=== PATIENT | female | born 1930 | race Caucasian/White ===

== ENCOUNTER 2018-01-20 23:59 | Inpatient (IN) | payer MEDICARE ==
[~2018-01-20] VITALS: Ht 162.5 cm
--- NOTE | ~2018-01-20 | WRIGHTHP ---
[place], [place] PATIENT HISTORY AND PHYSICAL EXAM NAME: KASHMIR NEWBY UNIT #: [id number] ROOM: 315 DOCTOR: MARIANA SOLIZ MD BIRTHDATE: [birth year] DOS: 01/22/2018 CHIEF COMPLAINT: "What am I doing here?" HISTORY OF PRESENT ILLNESS: This is an 87-year-old white female who is a resident of the [facility] who presented to the emergency room at [facility] with frequent falls, increased confusion and delusions. The patient apparently is normally confused, but has been getting increasingly worse. She has very poor safety awareness, does not follow directions. She was repeatedly getting up and almost falling. The patient has also been talking to her daughter. She has been very labile and inappropriate. She has been trying to climb out of the bed and has almost gotten hurt multiple times. When redirected, she has struck out at staff. She is admitted now to rule out any organic factors to attempt to stabilize on medication, to engage in individual and camilo milieu activity. PAST MEDICAL HISTORY: Remarkable for chronic kidney disease stage 3, hypertension, AFib, hyperlipidemia, diabetes, osteoarthritis. SOCIAL HISTORY: The patient denies drug or alcohol use now or in the past. ALLERGIES: She has no known allergies. STRENGTHS: The patient has a very supportive living situation and supportive family. MENTAL STATUS: The patient is alert and oriented to self only. This morning, she is quite confused and disjointed in her thinking. She is fragmented. She has a hard time following the conversation and oftentimes responds inappropriately to the questions asked of her. She processes information slowly and short term memory is exceedingly poor. DIAGNOSIS: Intermittent explosive disorder and major depression, recurrent, severe. PLAN: The patient has been maintained on Exelon patch 13.3. I will augment this with Namenda 5 mg a day. I did also start her on Risperdal 0.25 in the morning and 0.5 at night. I discontinued her citalopram. I would like to monitor further for depression as to what antidepressant I will start. I will engage her in individual and camilo milieu activity, returning to the least restrictive environment when stable. [place], [place] PATIENT HISTORY AND PHYSICAL EXAM NAME: KASHMIR NEWBY UNIT #: [id number] ROOM: [facility] DOCTOR: MARIANA SOLIZ MD BIRTHDATE: [birth year] MARIANA SOLIZ MD CM:HISPHYS:PATIENT HISTORY AND PHYSICAL EXAMINATION [id number] MARIANA SOLIZ MD 01/22/18 1144 interface
--- NOTE | ~2018-01-20 | PR ---
[place], [place] PROGRESS NOTE NAME: KASHMIR NEWBY UNIT #: [id number] ROOM: 315 DOCTOR: MARIANA SOLIZ MD BIRTHDATE: [birth year] DOS: 01/25/2018 CHIEF COMPLAINT: "Morning." SUMMARY OF THE VISIT: The patient was interviewed while she was engaging in group activities. She was fairly pleasant upon approach. She voiced no complaint, stated she slept well and had a good breakfast, but could not remember what she had eaten for breakfast. MENTAL STATUS: She is alert and oriented to person, not necessarily place, certainly not time. Mood does seem to be trending towards euthymia. Affect is more appropriate. There is no bandar, hypomania or gross psychosis. Short term memory continues to be problematic. PLAN: I will maintain her Exelon at its current dose, increasing the Namenda now to its maximum dose of 10 mg b.i.d., utilizing it to augment the effectiveness of the Exelon. We will engage in individual and camilo milieu activity with the plan to return to the least restrictive environment when psychiatrically stable. MARIANA SOLIZ MD CM:PNTRANS [id number] MARIANA SOLIZ MD 01/25/18 1129 interface
--- NOTE | ~2018-01-20 | PR ---
[place], [place] PROGRESS NOTE NAME: KASHMIR NEWBY UNIT #: [id number] ROOM: 315 DOCTOR: MARIANA SOLIZ MD BIRTHDATE: [birth year] DOS: 01/24/2018 CHIEF COMPLAINT: "Morning." SUMMARY OF THE VISIT: The patient was interviewed as she was sleeping in a chair. She was very difficult to awaken and engage and her responses this morning tended to be very short and simple. Nurses report she continues to exhibit mood lability and will have periods of excessive agitation and yelling out. MENTAL STATUS: She is alert and oriented to person, unclear place, certainly not time. Mood still seems to be labile. Affect at times is inappropriate. There is no gross bandar or hypomania and there does not appear to be the presence of any auditory or visual hallucinations. Short term memory continues to be extremely poor. PLAN: I will increase her Namenda to 10 mg in the morning and 5 mg at night, augmenting the effectiveness of the Exelon patch, continue to attempt to engage in individual and camilo milieu activity, returning then to the least restrictive environment when psychiatrically stable. MARIANA SOLIZ MD CM:PNTRANS [id number] MARIANA SOLIZ MD 01/24/18 1135 interface
--- NOTE | ~2018-01-20 | PR ---
[place], [place] PROGRESS NOTE NAME: KASHMIR NEWBY UNIT #: [id number] ROOM: 315 DOCTOR: MARIANA SOLIZ MD BIRTHDATE: [birth year] DOS: 01/26/2018 CHIEF COMPLAINT: "Is it breakfast?" SUMMARY OF THE VISIT: The patient was interviewed as she was sitting in the quiet room. Nurses report she had a very bad evening, but this morning seems to be a little calmer. I interviewed her once. She was fairly bright and superficial with me. A little bit later, she was interacting with physical therapy and was ambulating quite well. She was much more pleasant and cooperative with them and was not striking out, yelling out or exhibiting mood lability. MENTAL STATUS: She remains alert and oriented to person, possibly place, not to time. Mood does seem to be slightly more euthymic. Affect more appropriate. There was no hypomania or bandar. There are no gross psychotic symptoms noted now. This seems to be something, however, that occurs worse in the late evening hours. Memory for short term events remains problematic. PLAN: I will increase her Risperdal dose from 0.25 in the morning and 0.5 at night to 0.5 mg in the morning and 1 mg at bedtime to see if we can stop the sundowning and the resultant impulsivity and agitation and aggression. We will continue to engage in individual and camilo milieu activity, returning to the least restrictive environment when psychiatrically stable. MARIANA SOLIZ MD CM:PNTRANS [id number] MARIANA SOLIZ MD 01/26/18 1010 interface
--- NOTE | ~2018-01-20 | DS ---
[place], [place] DISCHARGE SUMMARY NAME: [id number] UNIT #: [id number] ROOM: 315 DOCTOR: MARIANA SOLIZ MD BIRTHDATE: [birth year] DOS: 01/28/2018 CHIEF COMPLAINT: "What am I doing here?" HISTORY OF PRESENT ILLNESS: This is an 87-year-old white female who is a resident of the [facility] who presents to the Emergency Room at [facility] with the chief complaint of frequent falls, increased confusion and marked delusions. The patient apparently has a baseline of being normally confused, but this has gotten progressively worse over the last several weeks prior to this admission. The patient has extremely poor safety awareness and does not follow directions. She has repeatedly attempted to get up without assistance and has fallen multiple times while at the assisted living facility. Attempts to redirect her have only met with her becoming increasingly more hostile, labile and verbally and physically aggressive. Because of the substantial risk of harm to self and others, the patient was admitted to the [facility] to rule out any organic factors, to attempt to stabilize on medication, to engage in individual and camilo milieu activity and to determine the least restrictive environment to which she can return safely. PAST MEDICAL HISTORY: Remarkable for chronic kidney disease stage III, hypertension, atrial fibrillation, hyperlipidemia, diabetes and osteoarthritis. The patient does not have a history of drug or illicit substance abuse and no history of alcohol abuse and has not been a cigarette smoker. STRENGTHS: The patient has a very good support system and is conversant. SUMMARY OF HOSPITAL COURSE: The patient was admitted to the unit where she was maintained on Exelon patch 13.3 mg a day. This was augmented with Namenda 5 mg a day, which was very rapidly titrated upwards to its maximum dose of 10 mg a day. Her citalopram was discontinued as was Depakote due to ineffectiveness. She was started on Risperdal 0.25 mg in the morning and 0.5 mg at night to combat the gross psychotic symptoms and to stabilize her mood. She tolerated the Risperdal well and the dose was gradually increased to 0.5 in the morning and 1 mg at night without apparent side effects. She did not exhibit sedation, somnolence or extrapyramidal symptoms and in fact significantly improved to the point where she was conversant in group, able to engage individually and was able to attend to her ADLs more effectively. It was felt that she could safely return back to assisted living because her overall cognition and behavior had improved sufficiently to do so. She was tolerating the medication regimen well and was discharged then back to the [facility] on 01/28/[facility]. MENTAL STATUS AT DISCHARGE: The patient is alert and oriented to self, more than likely place, not to time. Mood was euthymic. Affect appropriate. There were no symptoms of depression, hypomania, bandar or psychosis. Short term memory continued to be poor and she did process slowly, otherwise she was intact. FINAL DIAGNOSES: Major depression, recurrent and intermittent explosive [place], [place] DISCHARGE SUMMARY NAME: KASHMIR NEWBY UNIT #: [id number] ROOM: [facility] DOCTOR: MARIANA SOLIZ MD BIRTHDATE: [birth year] disorder with Alzheimer's dementia as well. DISPOSITION: The patient is returning to [facility] assisted living facility. Medically and psychiatrically, she is stable. Her biopsychosocial needs are adequately being met by the facility as well as family. She will have followup by myself upon her readmission to the [facility]. MARIANA SOLIZ MD CM:TREVER [id number] MARIANA SOLIZ MD 01/28/18 0927 interface
--- NOTE | ~2018-01-20 | PR ---
[place], [place] PROGRESS NOTE NAME: KASHMIR NEWBY UNIT #: [id number] ROOM: 315 DOCTOR: MARIANA SOLIZ MD BIRTHDATE: [birth year] DOS: 01/23/2018 CHIEF COMPLAINT: "Hello." SUMMARY OF THE VISIT: The patient was interviewed as she sat in the chair in the dining area. She engaged in brief very superficial conversation. At times, her responses were nonsensical and did not correspond to the question being asked of her. She was pleasant, however, and was not aggressive or abusive in any way. She seems to be tolerating the current medication regimen well and I see no sedation or somnolence. MENTAL STATUS: She is alert and oriented to self. Unclear if she realizes she is in the hospital and she is certainly not oriented to time. Mood does seem to be more euthymic. Affect is more appropriate. She does process conversation extremely slow and her responses tend to be sparse for the most part. Short term memory continues to be problematic. PLAN: I will go ahead and increase her Namenda to 5 mg b.i.d. while maintaining her current dose of Exelon, continue her present psychotropics, continue to engage in individual and camilo milieu activity, returning to the least restrictive environment when stable. MARIANA SOLIZ MD CM:PNTRANS [id number] MARIANA SOLIZ MD 01/23/18 1245 interface
--- NOTE | ~2018-01-20 | CON ---
[place], [place] REPORT OF CONSULTATION [facility]: [id number] UNIT #: [id number] ROOM: 315 DOCTOR: LETY HERRERA ED.D (HERVE) BIRTHDATE: [birth year] DOS: 01/26/2018 HISTORY OF PRESENT ILLNESS: The patient is an 87-year-old female referred by Dr. Villafana for competency evaluation. At the present time, this patient is on the [facility] Unit at [facility]. She is and had 5 children, however, 1 is . I spoke at length with her daughter, Ora and her son, Andrew. She has been recently living at the [place]. 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 She cannot recall her family physician's name. Her medical history is pertinent for chronic kidney disease, hypertension, atrial fibrillation, diabetes mellitus, osteoarthritis, dementia and intermittent explosive disorder. Her medications include Voltaren, Cardizem, omeprazole, Risperdal, Exelon, Namenda, metformin, metoprolol and lisinopril. She denies drinking any alcoholic beverages or smoking cigarettes. She was awake, alert and oriented to person. She was not aware she was in [facility] and believed she was in [place], [place]. She states she does not know where she lives. She does not know the year and could not name the president. She is clearly having difficulty with her memory, both short and senior care. Her insight is very poor and her judgment is very poor. In my opinion, this patient is clearly not competent to make informed healthcare decisions. She does not have a healthcare power of erisa attorney and I did complete an expert evaluation form for guardianship. Most likely her daughter will be appointed her guardian. DIAGNOSES: Major neurocognitive disorder -- Alzheimer's disease with behavioral disturbance. RECOMMENDATIONS: In my opinion, this patient needs a guardian. Thank you very much for this consult. LETY HERRERA ED.D CM:CONSTR:REPORT OF CONSULTATION 1647 01/26/18 1849 interface MARIANA VILLAFANA MD
--- NOTE | ~2018-01-20 | PR ---
[place], [place] PROGRESS NOTE NAME: KASHMIR NEWBY UNIT #: [id number] ROOM: 315 DOCTOR: MARGIE BECKER DO BIRTHDATE: [birth year] DOS: 01/27/2018 CHIEF COMPLAINT: "My right knee hurts that is what brought me into the hospital." SUMMARY OF VISIT: The patient is an 87-year-old female with past medical history of Alzheimer's dementia and generalized anxiety disorder who was admitted to the [facility] for recent falls, increased confusion and delusions at [facility], currently on hospital day #6 with improved mood. The patient was interviewed in the dining room and was sitting in a Katey chair, among other female patients. This morning patient was complaining of diffuse right knee pain and was anxious about falling. She reports wearing a brace at home at one point prior to misplacing it. The patient was evaluated by Dr. Buchanan yesterday on 01/26/2018 who deemed the patient not competent to make informed healthcare decisions and that the patient required a guardian. Today, the patient states that her son, Andrew , lives in [place] and her daughter, Ora [place], lives in [place], [place]. Bedside glucose last night was 260 and was 104 this morning. The patient reports improvement in her sleep last night and improved appetite at breakfast. MENTAL STATUS EXAMINATION: The patient is alert and oriented to self and place. She was unable to verbalize which day of the week it was. Her mood is appropriate. She appeared anxious when talking about her right knee pain. She appears to have gaps in her short term memory. No signs of bandar or hypomania at this time. PLAN: 1. Intermittent explosive disorder. Due to owning noted yesterday, Risperdal was increased from 0.25 mg in the morning and 0.5 mg at night to 0.5 mg in the morning and 1 mg at bedtime. Continue current psychotropic regimen as the patient is tolerating current therapy well. 2. Emergency guardianship. The patient was evaluated on 01/26/[address] Buchanan who deemed the patient not competent. Paperwork was faxed to Valerie Eastman at . 3. Right knee pain. We will continue Voltaren 1% topical ointment twice daily. The patient currently in physical therapy, we will inquire if the patient can be fitted for a knee brace. 4. Disposition; the patient to be discharged Friday or 01/28/2018 from 01/29/2018 to [facility] pending on medical and psychiatric status. We will continue to engage the patient in individual and milieu activity, returning to the least restrictive environment when psychiatrically stable. Margie Becker DO [place], [place] PROGRESS NOTE NAME: KASHMIR NEWBY UNIT #: [id number] ROOM: [facility] DOCTOR: MARGIE BECKER DO BIRTHDATE: [birth year] MARIANA SOLIZ MD CM:PNTRANS [id number] MARGIE BECKER DO 01/27/182055 interface
[2018-01-21] VITALS (14 sets, daily range): BP systolic 102–142; BP diastolic 41–85
[2018-01-21 00:32] LABS: BILIRUBIN 1+ (NEGATIVE); BLOOD 1+ (NEGATIVE); CLARITY TURBID (CLEAR); COLOR YELLOW (YELLOW); GLUCOSE NEGATIVE (NEGATIVE); KETONE TRACE (NEGATIVE); LEUKO ESTERASE 2+ (NEGATIVE); NITRITE NEGATIVE (NEGATIVE); SPECIFIC GRAVITY 1.025 (1.005-1.030)
[2018-01-21 00:34] LABS: BASO % 0.3 % (0.0-1.0); EOS # 0.3 10*3/uL (0.0-0.4); EOS % 3.7 % (1.0-4.0); HEMATOCRIT 33.1 % (37.0-47.0); HEMOGLOBIN 10.4 g/dl (12.0-16.0); LYMPH # 1.9 10*3/uL (1.3-4.4); LYMPH % 21.9 % (27.0-41.0); MEAN CELL VOLUME 89.9 fl (81.0-99.0); MEAN CORPUSCULAR HGB 28.3 pg (27.0-31.0); MEAN CORPUSCULAR HGB CONC 31.4 g/dl (33.0-37.0); MEAN PLATELET VOLUME 8.8 fl (9.6-12.3); MONO # 0.9 10*3/uL (0.1-1.0); MONO % 10.4 % (3.0-9.0); NEUT # 5.4 10*3/uL (2.3-7.9); PLATELET COUNT AUTOMATED 358 10*3/uL (130-400); RED BLOOD COUNT 3.68 10*6/uL (4.10-5.10); RED CELL DISTRI WIDTH 12.9 % (0-14.5); WHITE BLOOD COUNT 8.6 10*3/uL (4.8-10.8)
[2018-01-21 00:38] LABS: BACTERIA 3+
[2018-01-21] MEDS ORDERED: ASPIR LOW81 MG PO (00:38)
[2018-01-21 00:39] LABS: RBC 16-20 rbc/hpf (0-2); WBC 21-30 wbc/hpf (0-5)
[2018-01-21] MEDS ORDERED: CARDIZEM CD120 M2 PO (00:39)
[2018-01-21] MEDS ORDERED: CELEXA20 MG PO (00:39)
[2018-01-21 00:41] LABS: URINE AMPHETAMINES < 1000 (1000ng/ml); URINE BARBITURATES < 200 (200ng/ml); URINE BENZODIAZEPINES < 200 (200ng/ml); URINE CANNABINOIDS (THC) < 50 (50ng/ml); URINE COCAINE < 300 (300ng/ml); URINE METHADONE < 300 (300ng/ml); URINE OPIATES < 300 (300ng/ml)
[2018-01-21] MEDS ORDERED: B121000 MCG/1 IM (00:41)
[2018-01-21] MEDS ORDERED: DEPAKOTE125 MG PO (00:42)
[2018-01-21] MEDS ORDERED: EXEL13.31 T (00:44)
[2018-01-21 00:46] LABS: URINE PHENCYCLIDINE < 25 (25ng/ml)
[2018-01-21] MEDS ORDERED: GLUCAGON EMERGEN1 M1 IJ (00:46)
[2018-01-21] MEDS ORDERED: IMODIUM A-D2 M2 PO (00:47)
[2018-01-21 00:48] LABS: ACETAMINOPHEN (TYLENOL) 5.7 ug/ml (10-30); ALBUMIN 2.6 gm/dl (3.1-4.5); ALKALINE PHOSPHATASE 87 U/L (45-117); BUN 39 mg/dl (7-24); CHLORIDE 108 mmol/L (98-107); CREATININE 1.62 mg/dL (0.55-1.02); POTASSIUM 5.1 mmol/L (3.5-5.1); SGOT/AST 25 IU/L (3-35); SGPT/ALT 25 U/L (12-78); SODIUM 142 mmol/L (136-145); TOTAL PROTEIN 6.9 gm/dL (6.4-8.2)
[2018-01-21] MEDS ORDERED: METFORMIN HCL1000 MG PO (00:48)
[2018-01-21 00:49] LABS: ETHYL ALCOHOL < 3.0 mg/dl (<3)
[2018-01-21] MEDS ORDERED: LOPRESSOR25 MG PO (00:49)
[2018-01-21] MEDS ORDERED: NAMENDA XR21 M1 PO (00:50)
[2018-01-21] MEDS ORDERED: CELEXA40 MG PO (18:52)
[2018-01-21] MEDS ORDERED: DULCOLAX5 M1 PO (18:55)
[2018-01-21] MEDS ORDERED: MOM30 M1 PO (18:56)
[2018-01-21] MEDS ORDERED: PRILOSEC20 M1 PO (18:57)
[2018-01-21] MEDS ORDERED: TRAD5TAB1 PO (18:59)
[2018-01-21] MEDS ORDERED: TYLENOL325 M1 PO (18:59)
[2018-01-21] MEDS ORDERED: TRAMADOL HCL50 MG PO (19:00)
[2018-01-21] MEDS ORDERED: VITAMIN D50000 UNIT PO (19:01)
[2018-01-21] MEDS ORDERED: VISTARIL50 MG PO (19:01)
[2018-01-21] MEDS ORDERED: ZESTRIL5 MG PO (19:02)
[2018-01-21] MEDS ORDERED: VOLTAREN100 GM T (19:02)
[2018-01-21] MEDS ORDERED: TRESIBA FL100 UNIT/1 SQ (19:09)
[2018-01-21] MEDS ORDERED: RESTASIS1 EACH OP (19:09)
[2018-01-22 07:45] LABS: ALBUMIN 2.4 gm/dl (3.1-4.5); ALKALINE PHOSPHATASE 82 U/L (45-117); BUN 22 mg/dl (7-24); CHLORIDE 108 mmol/L (98-107); CHOLESTEROL 122 mg/dL (<200); HDL CHOLESTEROL 34 mg/dl (40-60); LDL CHOLESTEROL 66 mg/dL (9-159); POTASSIUM 4.4 mmol/L (3.5-5.1); SGOT/AST 19 IU/L (3-35); SGPT/ALT 26 U/L (12-78); SODIUM 140 mmol/L (136-145); TOTAL PROTEIN 6.5 gm/dL (6.4-8.2); TRIGLYCERIDES 109 mg/dl (<150); VLDL CHOLESTEROL 22 mg/dL (6-40)
[2018-01-22 07:55] VITALS: BP 128/67
[2018-01-22 08:05] LABS: VITAMIN D, 25-HYDROXY 30.5 ng/mL (30-100)
[2018-01-22 20:54] VITALS: BP 129/60
[2018-01-23 07:39] VITALS: BP 152/63
[2018-01-23 19:39] VITALS: BP 148/68
[2018-01-24 08:20] VITALS: BP 142/68
[2018-01-25 07:44] VITALS: BP 119/60
[2018-01-25 19:54] VITALS: BP 158/75
[2018-01-26 07:55] VITALS: BP 148/76
[2018-01-26 20:00] VITALS: BP 119/54
[2018-01-27 07:55] VITALS: BP 130/66
[2018-01-27 20:00] VITALS: BP 130/65
[2018-01-28 07:33] VITALS: BP 132/68
[2018-01-28] MEDS ORDERED: RISPERIDONE1 MG PO (08:50)
[2018-01-28] MEDS ORDERED: EXELON13.3 MG/21 T (08:50)
[2018-01-28] MEDS ORDERED: RISPERIDONE0.5 MG PO (08:50)
[2018-01-28] MEDS ORDERED: MEMANTINE HCL10 MG PO (08:50)
== END 2018-01-28 13:27 | disposition home or self-care (01) | DRG 56 ==
LOC: ED 23:59 → EDHOLD 01-21 11:17 → 3N 01-21 11:17
PROVIDERS: Emergency Medicine Emergency Medical Services; Psychiatry & Neurology Psychiatry
DX: G30.9 Alzheimer's disease, unspecified (principal); N17.0 Acute kidney failure with tubular necrosis; E43 Unspecified severe protein-calorie malnutrition; E11.22 Type 2 diabetes mellitus with diabetic chronic kidney disease; E67.8 Other specified hyperalimentation; I48.0 Paroxysmal atrial fibrillation; E11.65 Type 2 diabetes mellitus with hyperglycemia; N39.0 Urinary tract infection, site not specified; F33.2 Major depressive disorder, recurrent severe without psychotic features; F01.51 Vascular dementia, unspecified severity, with behavioral disturbance; E87.8 Other disorders of electrolyte and fluid balance, not elsewhere classified; D64.9 Anemia, unspecified; F63.81 Intermittent explosive disorder; N18.3 Chronic kidney disease, stage 3 (moderate); I12.9 Hypertensive chronic kidney disease with stage 1 through stage 4 chronic kidney disease, or unspecified chronic kidney disease; F22 Delusional disorders; R29.6 Repeated falls; F41.1 Generalized anxiety disorder; E78.2 Mixed hyperlipidemia; M17.11 Unilateral primary osteoarthritis, right knee; I25.10 Atherosclerotic heart disease of native coronary artery without angina pectoris; H35.30 Unspecified macular degeneration; Z79.4 Long term (current) use of insulin; Z68.26 Body mass index [BMI] 26.0-26.9, adult; Z79.899 Other long term (current) drug therapy; Z90.710 Acquired absence of both cervix and uterus; Z98.49 Cataract extraction status, unspecified eye; I25.2 Old myocardial infarction